=== PATIENT | female | born 1995 | race Caucasian/White ===

== ENCOUNTER 2017-08-04 21:20 | Emergency (ER) | payer MEDICAID ==
[~2017-08-04] VITALS: Ht 160 cm; Wt 113.6 kg
[2017-08-04] MEDS ORDERED: ALBUTEROL/IPRATROPIUM 2.5MG/0.5MG, 3 ML ONE ×2 (21:53)
[2017-08-04] MEDS: ALBUTEROL/IPRATROPIUM 2.5MG/0.5MG, 3 ML NPPB SCH ×2 (22:01→22:28)
[2017-08-04 23:29] VITALS: BP 124/76
== END 2017-08-04 23:37 | disposition home or self-care (01) ==
LOC: ED 22:25
DX: J45.31 Mild persistent asthma with (acute) exacerbation (principal)
CPT/HCPCS: 71020; 93005; 94640; 99284; J7512; J7620